=== PATIENT | male | born 2000 | race Hispanic/Latino ===

== ENCOUNTER 2021-11-15 12:40 | Emergency (ER) | payer SELFPAY ==
[2021-11-15 12:55] VITALS: BP 126/70; PULSE 68; RESP 20; TEMP 36.5
[2021-11-15] MEDS: cefTRIAXone 500 MG, LIDOCAINE HCL 1% LOCAL INJ 1 ML IM (13:05)
--- NOTE | 2021-11-15 13:09 | ED.MALEGU ---
HPI - Male Genitourinary General Chief complaint: Urogenital-Male Stated complaint: Std testing Time Seen by Provider: 11/15/21 12:54 Source: patient and RN notes reviewed Mode of arrival: ambulatory Limitations: no limitations History of Present Illness HPI Narrative: Patient presents today with a 2-day history of dysuria and white penile discharge. Denies penile pain, testicular pain, swelling, or redness. Denies any additional symptoms patient has had recent unprotected intercourse. Denies any reports of partners being diagnosed with sexually transmitted infections. Patient denies any history of sexually transmitted infections. MD Complaint: penile discharge and dysuria Related Data Allergies Allergy/AdvReac Type Severity Reaction Status Date / Time No Known Allergies Allergy Mild Verified 11/02/09 16:42 Review of Systems Review of Systems: CONSTITUTIONAL: Denies body aches, fever, chills, or sweats. EYES: Denies visual changes, redness, or discharge. ENT: Denies rhinorrhea, congestion, sore throat, or otalgia. CARDIOVASCULAR: Denies chest pain, palpitations, or edema. RESPIRATORY: Denies cough or dyspnea. GASTROINTESTINAL: Denies abdominal pain, nausea, vomiting, or diarrhea. GENITOURINARY: Denies hematuria.+ Dysuria, penile discharge SKIN: Denies rash, itching, or wounds. MUSCULOSKELETAL: Denies back pain, joint pain, or myalgia. NEUROLOGIC: Denies headache, numbness, tingling, or weakness. PSYCH: Denies depression or anxiety. PMFSH Comments At time of signature, I have reviewed and agree with nursing past medical, surgical, social and family history unless otherwise noted. Please see nursing chart for further information. There is no relevant family history pertinent to the presenting complaint Exam Narrative: GENERAL: Well-appearing, well-nourished, and in no acute distress. HEAD: Normocephalic, atraumatic. EYES: EOMI. No redness or drainage. Conjunctivae normal. ENT: Mucous membranes pink and moist. NECK: Normal AROM. CHEST: No respiratory distress. : deferred EXTREMITIES: Normal range of motion. No edema. SKIN: Warm, dry, no rash. Capillary refill normal. Normal skin turgor. NEURO: No focal deficits. Alert and oriented x3. Gait steady. PSYCH: Normal affect. No signs of depression or anxiety. Course Course Level of Care: Express Care Visit Vital Signs Vital signs: Vital Signs Temperature 97.7 F 11/15/21 12:55 Pulse Rate 68 11/15/21 12:55 Respiratory Rate 20 11/15/21 12:55 Blood Pressure 126/70 11/15/21 12:55 Temperature 97.7 F 11/15/21 12:55 Pulse Rate 68 11/15/21 12:55 Respiratory Rate 20 11/15/21 12:55 Blood Pressure 126/70 11/15/21 12:55 Reviewed. Pt has been instructed to follow up with his PCP regarding his elevated blood pressure today. MDM - Male Genitourinary Differential Diagnosis Differential diagnosis: Likely urinary tract infection, urethritis, epididymitis and other (Gonorrhea, chlamydia, trichomonas) Lab Data Labs: Lab Results 11/15/21 Range/Units 13:00 C.trachomatis RNA (TMA) Pending N.gonorrhoeae RNA (TMA) Pending T. vaginalis Amp RNA Pending Critical Care Time Critical Care Time Critical Care Time: No Discharge Plan Discharge Clinical Impression: Concern about sexually transmitted disease in male without diagnosis, Abnormal penile discharge Patient Disposition: Home, Self-Care Condition: Stable Instructions: Antibiotic Form, Chlamydia (ED), Gonorrhea (ED), Trichomoniasis (ED) Additional Instructions: Your urine sample has been sent off to test for gonorrhea, chlamydia, and trichomonas infections. These tests can take up to 5-7 days to come back. You will be notified by telephone if any of your tests come back positive. You have been treated with Rocephin in urgent care today to cover you for gonorrhea. Prescription for Flagyl and doxycycline has been sent to your pharmacy to cover you for trichomonas
== END 2021-11-15 13:36 | disposition home or self-care (01) ==
PROVIDERS: Emergency Provider Nurse Practitioner
DX: R36.9 Urethral discharge, unspecified (principal); Z20.2 Contact with and (suspected) exposure to infections with a predominantly sexual mode of transmission
CPT/HCPCS: 87491; 87591; 87661; 96372; 99213; G0463; J0696

== ENCOUNTER 2022-06-10 18:54 | Emergency (ER) | payer SELFPAY ==
[2022-06-10 19:03] VITALS: BP 128/81; PULSE 67; RESP 18; TEMP 36.3; O2SAT 100
--- NOTE | 2022-06-10 19:07 | ED.DENTAL ---
HPI - Dental/Oral General Chief complaint: Dental/Oral Stated complaint: Dental pain Time Seen by Provider: 06/10/22 19:08 Source: patient and RN notes reviewed Mode of arrival: ambulatory Limitations: no limitations History of Present Illness HPI Narrative: 21-year-old male presents to the [facility] with left upper dental pain, swelling, redness and purulent drainage Related Data Allergies Allergy/AdvReac Type Severity Reaction Status Date / Time No Known Allergies Allergy Mild Verified 06/10/22 19:23 Review of Systems Review of Systems: All systems reviewed & are unremarkable except as noted in HPI and below Constitutional: Constitutional: Reports no additional constitutional complaints, Denies chills and Denies fever(s) Eyes: Eyes: Reports no additional eye complaints ENT: Reports as per HPI (dental pain ) Cardiovascular: Cardiovascular: Reports no additional cardiovascular complaints Respiratory: Respiratory: Reports no additional respiratory complaints Gastrointestinal: Gastrointestinal: Reports no additional gastrointestinal complaints Musculoskeletal: Musculoskeletal: Reports no additional musculoskeletal complaints Integumentary/Breasts: Skin/Breast: Reports system reviewed and no additional complaints, except as docu Neurologic: Reports system reviewed and no additional complaints, except as documented Psychiatric: Psychiatric: Reports no additional psychiatric complaints Allergic/Immunologic: Allergic/Immunologic: Reports no additional allergic/immunologic complaints PMFSH Comments At the time of my signature, I reviewed and agree with the nursing past medical, surgical, social, and family history. There is no relevant family history pertinent to the patient complaint. Exam Const: General: healthy appearing, no acute distress and alert Nutritional Appearance: well nourished Orientation/consciousness: patient oriented x3 Limitations: no limitations HENMT: Head: normal to inspection Ears: external ears normal Mouth: Yes lip normal and Yes moist mucous membranes Other: Left upper posterior molar red, inflamed in mucosa, purulent drainage noted Eyes: General: appearance normal, both eyes and all related structures Pupils: Equal, round and reactive pupils present Neck: Neck: normal visual inspection, no lymphadenopathy and no meningeal signs Chest: Chest palpation & inspection: normal inspection of the chest Resp: Effort & Inspection: normal respiratory effort and no use of accessory muscles Auscultation: clear to auscultation bilaterally, no crackles, no rales, no rhonchi and no wheezes Cardio: Rate: regular rate Rhythm: regular rhythm GI: GI Palp: Yes Soft to palpation and No Tenderness to palpation present (GI) Back/Spine/Pelvis: Cervical Spine: normal cervical lordosis Thoracic/Lumbar Spine: thoracic and lumbar spine normal to inspection Skin: General skin exam: normal color Rashes: no rashes Wounds: no wounds Neuro: General: patient oriented x3, moves all extremities, no meningeal signs and no focal motor deficits Cranial nerves: Yes Equal, round and reactive pupils present Speech: normal speech Gait exam (Neuro): Normal gait present Extrem: General: normal to inspection, full ROM and capillary refill normal Psych: Appearance: grossly normal and well kempt Mental Status: mental status grossly normal Affect: normal affect Attitude: cooperative Thought content: Yes Normal thought content present Course Course Emergency Course: Discharge instructions reviewed with patient, as well as provided in writing per nursing staff. The instructions also include specific and strict return/GO TO THE ER as well as f/u information. All questions have been answered, and the patient deny any further questions with discharge and discharge plan. Some parts of this dictation were generated by voice recognition software and may contain typographical and/or grammatical inaccuracies. Level of C
== END 2022-06-10 19:19 | disposition home or self-care (01) ==
PROVIDERS: Emergency Provider Nurse Practitioner
DX: K04.7 Periapical abscess without sinus (principal)
CPT/HCPCS: 99213; G0463

== ENCOUNTER 2022-09-30 16:39 | Emergency (ER) | payer OTHER, SELFPAY ==
[2022-09-30 16:47] VITALS: BP 120/71; PULSE 87; RESP 18; TEMP 36.2; O2SAT 99
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
== END 2022-09-30 17:07 | disposition home or self-care (01) ==
PROVIDERS: Emergency Provider Nurse Practitioner Family
DX: S39.012D Strain of muscle, fascia and tendon of lower back, subsequent encounter (principal); V49.40XD Driver injured in collision with unspecified motor vehicles in traffic accident, subsequent encounter; M54.6 Pain in thoracic spine
CPT/HCPCS: 99213; G0463

== ENCOUNTER 2023-07-17 14:04 | Emergency (ER) | payer SELFPAY ==
[2023-07-17 14:18] VITALS: BP 123/99; PULSE 70; RESP 16; TEMP 37; O2SAT 100
--- NOTE | 2023-07-17 14:19 | ED.URI ---
HPI - URI/Sore Throat General Chief Complaint: Upper Respiratory Infection Stated Complaint: Fever;Cough;Sore Throat Source: patient, family and RN notes reviewed History of Present Illness HPI Narrative: 22 yo M presents to urgent care with significant other at side. Pt reports a sore throat, runny nose, the feeling of fluid in his ears, nausea intermittently, and intermittent shortness of breath. Pt states he has been having these sx for the last 3 days. Pt reports chills at home. No known fevers. Denies any V/D/C, abdominal pain, or chest pain. Pt has been taking OTC cold medication. Related Data Home Medications Medication Instructions Recorded Confirmed No Home Medications 07/17/23 07/17/23 Allergies Allergy/AdvReac Type Severity Reaction Status Date / Time No Known Allergies Allergy Mild Verified 07/17/23 14:15 Review of Systems Review of Systems: Pertinent positives and pertinent negatives per HPI. PMFSH Comments At the time of my signature, I reviewed and agree with the nursing past medical, surgical, social, and family history. There is no relevant family history pertinent to the patient complaint. Exam Narrative: GENERAL: This is a well-nourished, well-developed patient, in no apparent distress. HEAD: normocephalic, atraumatic. EYES: Sclera clear/white. Vision is grossly intact. EARS: External ears normal, auditory canals clear and without drainage, TMs normal without perforation. Hearing grossly intact. NOSE: External nose normal with no obvious nasal discharge, nares without redness, no rhinorrhea. THROAT: Mucous membranes moist, posterior pharynx erythremic. NECK: Neck supple, non-tender without lymphadenopathy, masses or thyromegaly. CARDIOVASCULAR: Regular rate and rhythm without murmurs, gallops, or rubs. RESPIRATORY: Clear to auscultation. Breath sounds equal bilaterally. No wheezes, rales, or rhonchi. GASTROINTESTINAL: Abdomen soft, non-tender, nondistended. Bowel sounds are active. No hepato-splenomegaly, or palpable masses. No guarding. SKIN: warm, intact with no suspicious lesions or rash, good texture and turgor. NEURO: awake, alert, and oriented to person, place and time. There were no obvious focal neurologic abnormalities. Course Course Level of Care: Express Care Visit Vital Signs Vital signs: Vital Signs Temperature 98.6 F 07/17/23 14:18 Pulse Rate 70 07/17/23 14:18 Respiratory Rate 16 07/17/23 14:18 Blood Pressure 123/99 H 07/17/23 14:18 Pulse Oximetry 100 07/17/23 14:18 Temperature 98.6 F 07/17/23 14:18 Pulse Rate 70 07/17/23 14:18 Respiratory Rate 16 07/17/23 14:18 Blood Pressure 123/99 H 07/17/23 14:18 Pulse Oximetry 100 07/17/23 14:18 reviewed MDM - URI/Sore Throat MDM Narrative Medical decision making narrative: Rapid strep is negative in the office; however we will send to the lab for confirmation; there is a small percentage chance that it can come back positive; if it is, we will call you in 2-3days; and your prescription will be call in to your pharmacy. However, there is NO indication for antibiotic at this time. -Increase your fluids and Vitamin C. -Oral rinses such as: Salt water gargles and/or may use topical anesthetic (eg. Chloraseptic spray) or lozenges to relieve dryness or throat pain. -Take tylenol and ibuprofen as needed for pain and fever as directed. -Frequent hand washing or hand pet adoption counselor is one of the best ways to prevent spread of infection. -Follow up with primary care provider in 2-3 days if condition is not improving or seek ER visit if your child starts breathing fast/has trouble breathing, is not drinking enough fluids, muffle voice, difficulty opening the mouth or will not wake up or will not interact with you. Differential Diagnosis Differential diagnosis: Likely upper respiratory infection, viral infection and pharyngitis Lab Data Attestation: I reviewed the patient's lab results. Cri
== END 2023-07-17 14:31 | disposition home or self-care (01) ==
PROVIDERS: Emergency Provider Nurse Practitioner Family
DX: B34.9 Viral infection, unspecified (principal); J02.9 Acute pharyngitis, unspecified
CPT/HCPCS: 87081; 87880; 99213; G0463

== ENCOUNTER 2024-06-28 17:10 | Emergency (ER) | payer BC, SELFPAY ==
--- NOTE | ~2024-06-28 | XR_ITS ---
EXAMINATION: XR forearm RT 2V DATE: 06/28/2024 17:56 INDICATION: Right forearm pain. TECHNIQUE: 2 views of right forearm were obtained. COMPARISON: None. FINDINGS: There is plate and screw fixation of radial diaphysis. No acute fracture. Joint spaces are normal. No elbow joint effusion. IMPRESSION: 1. No acute fracture. Reviewed, dictated and finalized at location A. IMPRESSION: 1. No acute fracture.
[2024-06-28 17:25] VITALS: BP 106/66; PULSE 73; RESP 16; TEMP 37; O2SAT 99
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
== END 2024-06-28 18:13 | disposition home or self-care (01) ==
PROVIDERS: Emergency Provider Nurse Practitioner Family
DX: S63.501A Unspecified sprain of right wrist, initial encounter (principal); S66.911A Strain of unspecified muscle, fascia and tendon at wrist and hand level, right hand, initial encounter; X50.0XXA Overexertion from strenuous movement or load, initial encounter
CPT/HCPCS: 73090; 99213; G0463